=== PATIENT | male | born 1995 | race Two or more races ===

== ENCOUNTER 2018-09-03 19:43 | Observation (INO) | payer OTHER ==
[2018-09-03 21:14] LABS: ABS Basophils 0.1 10^3/ul (0-0.2); ABS Eosinophils 0.1 10^3/ul (0-0.6); ABS Lymphocytes 1.5 10^3/ul (1.0-4.8); ABS Monocytes 0.5 10^3/ul (0-0.8); ABS Neutrophils 5.5 10^3/ul (1.5-7.7); ABS Nucleated RBC 0 10^3/ul; Eosinophil % 1.2 %; Hematocrit 44 % (42-52); Hemoglobin 15.1 g/dl (14.0-18.0); Lymphocyte % 19.8 %; Mean Corpuscular HGB Conc 35 g/dl (31-36); Mean Corpuscular Hemoglobin 31 pg (27-31); Mean Corpuscular Volume 89 fL (80-94); Mean Platelet Volume 7.7 fL (7.4-10.4); Nucleated Red Blood Cells % 0; Platelet Count 264 10^3/ul (150-450); Red Blood Count 4.92 10^6/ul (4.00-5.40); Red Cell Distribution Width 13 % (10.5-15); White Blood Count 7.7 10^3/ul (3.5-10.8)
[2018-09-03 21:30] LABS: Albumin 5.1 g/dL (3.2-5.2); Albumin/Globulin Ratio 1.6 (1-3); BUN/Creatinine Ratio 14.6 (8-20); EGFR African American 119.6 (>60); EGFR Non-African American 98.9 (>60); Globulin 3.2 g/dL (2-4); Potassium 3.5 mmol/L (3.5-5.0); Total Bilirubin 0.5 mg/dL (0.2-1.0); Total Protein 8.3 g/dL (6.4-8.9)
[2018-09-03] MEDS ORDERED: NS 0.9% 1000 ML** 1,000 ML IV ONE (21:38)
--- NOTE | 2018-09-03 21:41 | ED ---
HPI Chest Pain - HPI Summary HPI Summary: This patient is a 23 year old M presenting to [facility] with a chief complaint of left-sided CP that began yesterday morning. The patient rates the pain 0/10 in severity. Symptoms aggravated by deep breath. Symptoms alleviated by nothing. - History of Current Complaint Chief Complaint: EDChestWallPain Time Seen by Provider: 09/03/18 21:35 Hx Obtained From: Patient Onset/Duration: Started Days Ago, Atraumatic, Still Present Timing: Constant Initial Severity: Mild Current Severity: Mild Pain Intensity: 0 Pain Scale Used: 0-10 Numeric Chest Pain Location: Left Lateral Chest Pain Radiates: No Aggravating Factor(s): Deep Breaths Alleviating Factor(s): Nothing - Allergy/Home Medications Allergies/Adverse Reactions: Allergies Allergy/AdvReac Type Severity Reaction Status Date / Time No Known Allergies Allergy Verified 09/03/18 19:51 Home Medications: Home Medications Finasteride [Propecia] 1 mg PO DAILY 09/03/18 [History Confirmed 09/03/18] PMH/Surg Hx/FS Hx/Imm Hx Previously Healthy: Yes Opthamlomology History: Denies: Hx Legally Blind EENT History: Denies: Hx Deafness Infectious Disease History: No Infectious Disease History: Denies: Traveled Outside the [place] in Last 30 Days - Family History Known Family History: Positive: Other - DVT and PE Negative: Cardiac Disease, Diabetes - Social History Occupation: Student Lives: With Family Alcohol Use: None Hx Substance Use: No Substance Use Type: Reports: None Hx Tobacco Use: No Smoking Status (MU): Never Smoked Tobacco Review of Systems Negative: Fever Positive: Chest Pain All Other Systems Reviewed And Are Negative: Yes Physical Exam - Summary Physical Exam Summary: VITAL SIGNS: Reviewed. GENERAL: Patient is a well-developed and nourished male who is lying comfortable in the stretcher. Patient is not in any acute respiratory distress. HEAD AND FACE: No signs of trauma. No ecchymosis, hematomas or skull depressions. No sinus tenderness. EYES: PERRLA, EOMI x 2, No injected conjunctiva, no nystagmus. EARS: Hearing grossly intact. Ear canals and tympanic membranes are within normal limits. MOUTH: Oropharynx within normal limits. NECK: Supple, trachea is midline, no adenopathy, no JVD, no carotid bruit, no c- spine tenderness, neck with full ROM. CHEST: Symmetric, no tenderness at palpation LUNGS: Clear to auscultation bilaterally. No wheezing or crackles. CVS: Regular rate and rhythm, S1 and S2 present, no murmurs or gallops appreciated. ABDOMEN: Soft, non-tender. No signs of distention. No rebound no guarding, and no masses palpated. Bowel sounds are normal. EXTREMITIES: FROM in all major joints, no edema, no cyanosis or clubbing. NEURO: Alert and oriented x 3. No acute neurological deficits. Speech is normal and follows commands. SKIN: Dry and warm Triage Information Reviewed: Yes Vital Signs On Initial Exam: Initial Vitals Temp Pulse Resp BP Pulse Ox 98.4 F 60 16 157/82 97 09/03/18 19:48 09/03/18 19:48 09/03/18 19:48 09/03/18 19:48 09/03/18 19:48 Vital Signs Reviewed: Yes Diagnostics - Vital Signs Vital Signs Temp Pulse Resp BP Pulse Ox 09/03/18 19:48 98.4 F 60 16 157/82 97 - Laboratory Lab Results: Lab Results 09/03/18 09/03/18 09/03/18 Range/Units 21:05 21:05 21:05 WBC 7.7 (3.5-10.8) 10^3/ul RBC 4.92 (4.00-5.40) 10^6/ul Hgb 15.1 (14.0-18.0) g/dl Hct 44 (42-52) % MCV 89 (80-94) fL MCH 31 (27-31) pg MCHC 35 (31-36) g/dl RDW 13 (10.5-15) % Plt Count 264 (150-450) 10^3/ul MPV 7.7 (7.4-10.4) fL Neut % (Auto) 71.6 % Lymph % (Auto) 19.8 % [place] % (Auto) 6.7 % Eos % (Auto) 1.2 % Baso % (Auto) 0.7 % Absolute Neuts (auto) 5.5 (1.5-7.7) 10^3/ul Absolute Lymphs (auto) 1.5 (1.0-4.8) 10^3/ul Absolute Monos (auto) 0.5 (0-0.8) 10^3/ul Absolute Eos (auto) 0.1 (0-0.6) 10^3/ul Absolute Basos (auto) 0.1 (0-0.2) 10^3/ul Absolute Nucleated RBC 0 10^3/ul Nucleated RBC % 0 D-Dimer, Quantitative 710 H (Less Than 230) ng/mL Sodium 139 (135-145) mmol/L Potassium 3.5 (3.5-5.0) mmol/L Chloride 102 (101-111) mmol/L Carbon Dioxide 29 (22-32) mmol/L Anion Gap 8 (2-11) mmol/L BUN 14 (6-24) mg/dL Creatinine 0.96 (0.67-1.17) mg/dL Est GFR ( Amer) 119.6 (>60) Est GFR (Non-Af Amer) 98.9 (>60) BUN/Creatinine Ratio 14.6 (8-20) Glucose 106 H (70-100) mg/dL Calcium 10.0 (8.6-10.3) mg/dL Total Bilirubin 0.50 (0.2-1.0) mg/dL AST 15 (13-39) U/L ALT 14 (7-52) U/L Alkaline Phosphatase 60 (34-104) U/L Troponin I 0.00 (<0.04) ng/mL Total Protein 8.3 (6.4-8.9) g/dL Albumin 5.1 (3.2-5.2) g/dL Globulin 3.2 (2-4) g/dL Albumin/Globulin Ratio 1.6 (1-3) Result Diagrams: 09/03/18 21:05 09/03/18 21:05 Lab Statement: Any lab studies that have been ordered have been reviewed, and results considered in the medical decision making process. - Radiology Chest XR Radiology Interpretation Completed By: ED Physician Summary of Radiographic Findings: CXR reveals, per ED physician, no acute process. - CT CT Chest/Thorax CT Interpretation Completed By: Radiologist Summary of CT Findings: CT chest/thorax reveals, per radiologist, 1. The study is POSITIVE for bilateral pulmonary emboli involving segmental branches of the right upper lobe and bilateral lower lobe arteries and the lingular artery. Small to moderate overall clot burden. No right heart strain. RV to LV ratio equals 0.8 2. Left lower lobe airspace opacity, possibly early pulmonary infarct. Infectious etiology less likely. 3. Small left pleural effusion. 4. Tiny bilateral lower lobe nodules. Per Fleischner Society Criteria, if the patient has no risk factors such as smoking or cancer, no further workup is indicated. If they do have risk factors for cancer, followup CT is suggested in one year to assess stability. ED physician has reviewed this radiology report. - EKG 2128 Cardiac Rate: NL EKG Rhythm: Sinus Rhythm - 54 BPM Summary of EKG Findings: An EKG taken at 2128 reveals nml sinus rhythm at 54 BPM with J point elevation and prominent S wave in lead 1 and T wave inversion in lead 3. Chest Pain Course/Dx - Course Course Of Treatment: This patient is a 23 year old M presenting to [facility] with a chief complaint of left-sided CP that began yesterday morning. Physical Exam Findings: Nml. An EKG taken at 2128 reveals nml sinus rhythm at 54 BPM with J point elevation and prominent S wave in lead 1 and T wave inversion in lead 3. CT chest/thorax reveals, per radiologist, 1. The study is POSITIVE for bilateral pulmonary emboli involving segmental branches of the right upper lobe and bilateral lower lobe arteries and the lingular artery. Small to moderate overall clot burden. No right heart strain. RV to LV ratio equals 0.8 2. Left lower lobe airspace opacity, possibly early pulmonary infarct. Infectious etiology less likely. 3. Small left pleural effusion. 4. Tiny bilateral lower lobe nodules. Per Fleischner Society Criteria, if the patient has no risk factors such as smoking or cancer, no further workup is indicated. If they do have risk factors for cancer, followup CT is suggested in one year to assess stability. Bloodwork obtained. In the ED course the patient was given contrast, fluids, Lovenox. Consult with Dr. Green (hospitalist) at 2326. She agrees to admit the patient for further evaluation. The patient is agreeable with this plan. - Diagnoses Provider Diagnoses: Pulmonary embolism Discharge - Sign-Out/Discharge Documenting (check all that apply): Patient Departure - Admit to [facility] [place] Patient Received Moderate/Deep Sedation with Procedure: No - Discharge Plan Condition: Stable Disposition: ADMITTED TO [facility] Referrals: No Primary Care Phys,NOPCP [Primary Care Provider] - - Attestation Statements Document Initiated by Scribe: Yes Documenting Scribe: Sharri López Provider For Whom Scribe is Documenting (Include Credential): Dr. Duglas Davidson MD Scribe Attestation: I, Sharri López, scribed for Dr. Duglas Davidson MD on 09/03/18 at 2331. Status of Scribe Document: Ready
[2018-09-03] MEDS ORDERED: Iohexol 350* (CONTRAST) 500 ML MDV IV ONE (21:42)
[2018-09-03] MEDS ORDERED: Enoxaparin(*) 100 MG/ML SYR SUBCUT ONE (23:23)
[2018-09-04] MEDS ORDERED: Al Hydrox/Mg Hydrox/Simet LIQ* 30 ML UDC PO PRN (00:06)
[2018-09-04] MEDS ORDERED: Ondansetron INJ* 2 MG/ML VIAL IV PRN (00:06)
[2018-09-04] MEDS ORDERED: Acetaminophen TAB* 325 MG PO PRN (00:06)
[2018-09-04 00:14] LABS: Activated Partial Thrombo Time 30.4 seconds (26.0-36.3); INR 1.04 (0.77-1.02)
--- NOTE | 2018-09-04 01:45 | HP ---
CC: [facility] * HISTORY AND PHYSICAL: DATE OF ADMISSION: 09/04/18 TIME OF EVALUATION: 0000. PRIMARY CARE PHYSICIAN: [facility]. CHIEF COMPLAINT: Pleuritic chest pain. HISTORY OF PRESENT ILLNESS: This is a 23-year-old previously healthy male who presents to the emergency room with pleuritic chest pain. The patient states he noticed a week ago he developed right calf pain. It followed the day after he was playing basketball. He did not think much of it. His right calf pain improved after about a week. Three days ago, he was playing basketball. He woke up with pleuritic chest pain only on the left side. It did improve throughout the day. Then this morning, he woke up with the same pleuritic pain on the left side and then he began coughing up some blood. The pleuritic pain has persisted and he has continued to have a blood-tinged sputum. He came to the emergency room for further evaluation as his father has had multiple DVTs and PEs in the past and he is aware of symptoms for this. He denies any fevers , no URI symptoms, no abdominal pain. No nausea, vomiting, or diarrhea. He states he drove to school, which was about 4 hours about a month ago. He states he has been more sedentary playing video games. Otherwise, review of systems is negative. In the emergency room, the patient had labs, imaging, including a CTA that showed bilateral PE. He was given Lovenox, a liter of fluid, and was referred to the hospitalist service for further evaluation. PAST MEDICAL HISTORY: History of alopecia. MEDICATIONS: Finasteride 1 mg p.o. daily. ALLERGIES: No known drug allergies. FAMILY HISTORY: As mentioned, his dad started having DVT and PEs starting in his 20s. His initial workup in , he was told he had protein C deficiency. He had a recent workup within the past year at [facility] and was told his hypercoagulable workup was unremarkable. No other family members with a clotting disorder. SOCIAL HISTORY: The patient is a senior at [employer]. He lives with 7 other room mates. He intermittently smokes, rare alcohol use. He smokes marijuana daily. His code status is full code. Healthcare proxy are his parents. REVIEW OF SYSTEMS: A 14-point review of systems as mentioned in the HPI, otherwise negative. PHYSICAL EXAMINATION GENERAL: No acute distress. Resting comfortably. VITAL SIGNS: Temp 98.4, pulse rate 62, respiratory rate 16, oxygen saturation 98 % on room air, blood pressure 128/73. HEENT: Head normocephalic. Pupils equal and reactive, anicteric. Oropharynx: Mucous membranes moist. NECK: Supple. No lymphadenopathy. RESPIRATORY: Clear to auscultation. No wheezes, rhonchi, or rales. CARDIAC: Regular rate and rhythm. No murmurs, rubs, or gallops. ABDOMEN: Soft, nontender, nondistended. EXTREMITIES: No clubbing, cyanosis, or edema; +2 DPs. No calf asymmetry or calf tenderness. NEUROLOGIC: Alert and oriented x3. No gross focal neurologic deficits. DIAGNOSTIC STUDIES/LAB DATA: White count 7.7, hemoglobin is 15.1, hematocrit 44, platelets 264. D-dimer 710. Sodium 129, potassium 3.5, chloride 102, bicarb 29, BUN 14, creatinine 0.96, glucose 106. Troponin is 0. Radiographic Data: EKG shows sinus martita with a rate of 54, with inverted T- waves in II, III, and aVF. CTA positive for bilateral pulmonary emboli involving segmental branches of right upper lobe and bilateral lower lobe arteries and the lingular artery. Small to moderate overall clot burden, no right heart strain. RV to LV ratio equals 0.8. Left lower lobe airspace opacity, possibly early pulmonary infarct , infectious etiology less likely. Small left pleural effusion. Tiny bilateral lower lobe nodules. ASSESSMENT: This is a 23-year-old male with a family history of hypercoagulable disorder, who presents to the emergency room with pleuritic pain , found to have bilateral pulmonary emboli. 1. Bilateral pulmonary emboli. Assessment: With his age, it is concerning for thrombophilia. The patient is on room air with no work of breathing. He is not tachycardic or hypoxic. No evidence of right heart strain on the CTA. I am going to start his hypercoagulable workup here prior to him getting Lovenox including checking a PT, PTT, factor V Leiden, prothrombin gene mutation , protein C and S, antithrombin, antiphospholipid. We will continue him on Lovenox at 1 mg/kg q.12 for now. Suspect he will be able to transition to a DOAC at discharge. We will order Doppler of his lower extremities bilateral and echocardiogram. The patient will benefit from a hematology consultation, either inpatient or outpatient. The patient is currently asymptomatic at this time. We will repeat his EKG in the morning and admit him to telemetry. 2. Chronic medical problems. Alopecia. Continue his finasteride. 3. FEN. Continue the patient on regular diet. 4. DVT prophylaxis. The patient will be started on Lovenox therapeutic dosage. 5. Code status. Full code. PATIENT TIME: Greater than 45 minutes spent doing the history and physical, more than half the time spent in direct patient contact. [id number]/[facility]PS #: [id number] MTDD
[2018-09-04] MEDS ORDERED: FINASTERIDE 1 MG PO SCH (09:00)
--- NOTE | 2018-09-04 10:10 | ECHO ---
Patient: JAZMÍN LOZANO [facility] Rec#: [id number] : 1995 Date: 09/04/2018 Age: 23y Height: 178 cm / 70.1 in Weight: 86 kg / 189.5 lbs Sex: M BSA: 2.04 Room#: [facility] Admit Date#: 09/04/2018 Type: Inpatient Referring: Estela Green Reading: Guilherme Butts DO Dovetail Machine Operator: Sunita CrowderRDCS,RDMS Transthoracic Echocardiogram Indication: PULMONARY EMBOLISM BP: 122/64 HR: 50 Rhythm: Bradycardia Findings History: Previously healthy Technical Comments: The study quality is good. Left Ventricle: The left ventricular chamber size is normal. There is no left ventricular hypertrophy. Global left ventricular wall motion and contractility are within normal limits. The estimated ejection fraction is 55-60%. Normal left ventricular diastolic filling is observed. Left Atrium: The left atrial chamber size is normal. Right Ventricle: The right ventricular chamber size and systolic function are within normal limits. Right Atrium: The right atrial cavity size is normal. Aortic Valve: The aortic valve is trileaflet. There is no evidence of aortic valve thickening. Systolic excursion of the aortic valve is normal. There is no evidence of aortic regurgitation. There is no evidence of aortic stenosis. Mitral Valve: The mitral valve leaflets appear normal. There is a trace of mitral regurgitation. There is no evidence of mitral stenosis. Tricuspid Valve: The tricuspid valve leaflets are normal. There is trace tricuspid regurgitation. No pulmonary hypertension is noted. Pulmonic Valve: The pulmonic valve appears normal. There is a trace pulmonic regurgitation. Pericardium: There is no significant pericardial effusion. Aorta: The aortic root appears normal. There is no dilatation of the aortic arch. Pulmonary Artery: The main pulmonary artery is not well visualized. Venous: The inferior vena cava appears normal in size. There is an approximate 50% respiratory change in the inferior vena cava dimension. Conclusions The left ventricular chamber size is normal. There is no left ventricular hypertrophy. Global left ventricular wall motion and contractility are within normal limits. The estimated ejection fraction is 55-60%. The left atrial chamber size is normal. The right ventricular chamber size and systolic function are within normal limits. There is trace tricuspid regurgitation. No pulmonary hypertension is noted. None prior for comparison Measurements Name Value Normal Range RVIDd (AP) 2D 2.7 cm (0.9 - 2.6) RVDdMajor (2D) 3.9 cm (2.2 - 4.4) RAd ISD 4CH 4.6 cm (3.4 - 4.9) RA (A4C)W 4.2 cm (2.9 - 4.6) IVSd (2D) 0.9 cm (0.6 - 1) LVPWd (2D) 1 cm (0.6 - 1) LVIDd (2D) 5.5 cm (3.6 - 5.4) LVIDs (2D) 3.5 cm - LV FS (2D) 36 % (25 - 45) Aortic Annulus 2 cm (1.4 - 2.6) Ao root diameter (2D) 2.7 cm (2.1 - 3.5) Ascending Ao 2.7 cm (2.1 - 3.4) Aortic arch 2.4 cm (1.8 - 3.4) LA dimension (AP) 2D 3.8 cm (2.3 - 3.8) LAd ISD 4CH 5.3 cm (2.9 - 5.3) LA ISD 4CH W 4.2 cm (2.5 - 4.5) Name Value Normal Range LA ESV BP (A/L) index 28 ml/m2 - Name Value Normal Range MV E-wave Vmax 0.9 m/sec - MV deceleration time 310 msec - MV A-wave Vmax 0.5 m/sec - MV E:A ratio 1.8 ratio - P. vein S-wave Vmax 0.4 m/sec - P. vein D-wave Vmax 0.6 m/sec - P. vein S:D Vmax ratio 0.7 ratio - P. vein A-wave duration 120 msec - LV septal e' Vmax 0.14 m/sec - LV lateral e' Vmax 0.17 m/sec - LV E:e' septal ratio 6 ratio - LV E:e' lateral ratio 5 ratio - Name Value Normal Range AV Vmax 1.5 m/sec - AV VTI 32 cm - AV peak gradient 9 mmHg - AV mean gradient 5 mmHg - LVOT Vmax 1.2 m/sec - LVOT VTI 23.5 cm - LVOT peak gradient 6 mmHg - LVOT mean gradient 3 mmHg - WINIFRED Vmax 1.5 m/sec - Name Value Normal Range TR Vmax 2.2 m/sec - TR peak gradient 18 mmHg - RAP 3 mmHg - RVSP 21 mmHg - IVC diameter 2.4 cm - Name Value Normal Range PV Vmax 0.9 m/sec - PV peak gradient 3.2 mmHg -
[2018-09-04] MEDS ORDERED: Enoxaparin(*) 100 MG/ML SYR SUBCUT SCH (12:00)
--- NOTE | 2018-09-04 13:24 | DS ---
CC: Dr. Estela Green; Dr. Duglas Davidson; Dr. Patricia * DISCHARGE SUMMARY: DATE OF ADMISSION: DATE OF DISCHARGE: 09/04/18 DISCHARGE DIAGNOSES: 1. Bilateral pulmonary embolism. 2. Deep vein thrombosis of the right popliteal vein leading to bilateral pulmonary embolism. 3. History of alopecia, was previously on finasteride. DISCHARGE MEDICATIONS: As follows: Xarelto 15 mg p.o. b.i.d. for 21 days, then followed by 20 mg p.o. daily. HISTORY OF PRESENT ILLNESS/HOSPITAL COURSE: The patient is a 23-year-old gentleman with history of alopecia, on finasteride, who presented to the emergency room with pleuritic chest pain. The patient mentioned that a week prior he developed a right calf pain. The calf pain developed after playing basketball the day previously. He said that he did not think much of it and his right calf pain improved. He mentioned that 3 days prior to admission, he played basketball again and then woke up with pleuritic chest pain on the left side the following day. He mentioned that it did not improve; however, it persisted leading to his presentation in the ED, at which point he received a CT angio which showed bilateral PE. He was then subsequently placed on Lovenox and hypercoagulable studies had been sent prior to placing him on full dose anticoagulation such as antithrombin III mutation, cardiolipin antibody, factor V Leiden, prothrombin mutation, and protein C and S. He also has a family history more specifically, his father of PE as well. He was told initially that he did have protein C deficiency and subsequent results suggested that he does not, but it is unclear whether he was already on anticoagulation when the repeat test was done. The patient also underwent an ambulatory sats and has saturated at 97% at room air. He had been advised to follow up and recall his PCP within 3 days post discharge. He was informed that I have spoke with Dr. Patricia, our manager linux at [facility] [place], and he had been suggested to stop taking finasteride and to discuss his options with his followup appointment at Dr. Patricia's office. He had been advised to get his Lovenox injection before he leaves and to take the first dose of 15 mg dose of Xarelto at 10 p.m. He had been advised that if his symptoms resume or develop new ones or feel unwell for any reason, to call his PCP first and if his PCP cannot entertain him due to scheduling issues alone, he is to call [facility] if the issue is considered nonemergent. He was advised to call my office regarding any questions, concerns, or further clarifications regarding his discharge plans and/or prescriptions and to take his medications as prescribed. REVIEW OF SYSTEMS: The patient denied any recent headaches, dizziness, fevers, chills, nausea, vomiting, chest pain, shortness of breath, increased cough and/ or sputum production, abdominal pain, diarrhea, constipation, pain and/or increased frequency on urination, myalgias, arthralgias, throat pain, or new skin lesions. The rest of the 14-point review of systems are otherwise unremarkable. PHYSICAL EXAMINATION: Shows the most recent vital signs of record with blood pressure of 127/70, 98.2 degrees Fahrenheit, 53 beats per minute heart rate, 18 per minute respiratory rate, saturating at 100% on room air. General Appearance : The patient is awake, alert, and oriented x3, not in acute distress. HEENT: Normocephalic, atraumatic. PERRLA, extraocular muscles intact. Negative for icterus. Moist oral mucosa. Negative throat erythema. Neck is soft, supple, with no cervical lymphadenopathy. No JVD. Heart: S1 and S2, within normal limits. Regular rate and rhythm. No murmurs, rubs or gallops. Chest: Clear to auscultation bilaterally. Good air entry. No wheezes, rales, or rhonchi. Abdomen is soft, nondistended, nontender. Normoactive bowel sounds x4 quadrants. Extremities: No cyanosis, clubbing. Psychiatric: No active psychosis, depression, suicidal or homicidal ideation. Skin is warm to touch. TIME SPENT: The total time spent evaluating the patient, reviewing pertinent data, and appropriate documentation is 40 minutes. [id number]/[facility] #: [id number] [facility]ITAL[facility]ain[facility]
[2018-09-04 14:05] VITALS: BP 123/57
[2018-09-05 18:22] LABS: Phospholipid Ab IgG < 9.4 GPL; Phospholipid Ab IgM, S < 9.4 MPL
[2018-09-08 18:55] LABS: Factor V Leiden Mutation Negative (Negative); Prothrombin 20210 Mutation Negative (Negative)
== END 2018-09-04 14:32 | disposition home or self-care (01) ==
LOC: ED 19:43 → MEDTELE 09-04 00:06
PROVIDERS: ADMIT Pediatrics; ATTEND Student in an Organized Health Care Education/Training Program
DX: I26.99 Other pulmonary embolism without acute cor pulmonale (principal); I82.431 Acute embolism and thrombosis of right popliteal vein; Z86.718 Personal history of other venous thrombosis and embolism; L63.9 Alopecia areata, unspecified; Z79.899 Other long term (current) drug therapy
CPT/HCPCS: 36415; 71046; 71275; 80053; 81240; 81241; 84484; 85025; 85300; 85303; 85306; 85379; 85610; 85730; 86147; 93005; 93306; 93970; 96372; 96374; 99283; A9270-GY; G0378; J1650; Q9967